=== PATIENT | male | born 2000 | race Caucasian/White ===

== ENCOUNTER → 2018-11-24 | Outpatient (CLI) | payer BC ==
[~2018-11-24] MED LIST: AMPH30TA10 PO; BUPR-126 PO; METH27ERPT PO
[2018-11-24 17:08] LABS: PLATELET COUNT, AUTOMATED 363 K/uL (150-450)
== END ==
LOC: LAB 16:57
PROVIDERS: ATTEND Internal Medicine
DX: F90.9 Attention-deficit hyperactivity disorder, unspecified type (principal); F41.9 Anxiety disorder, unspecified; K52.9 Noninfective gastroenteritis and colitis, unspecified; G47.34 Idiopathic sleep related nonobstructive alveolar hypoventilation; R53.83 Other fatigue
CPT/HCPCS: 36415; 82040; 82247; 82310; 82374; 82435; 82565; 82607; 82728; 82746; 82947; 83540; 83550; 84075; 84132; 84155; 84295; 84443; 84450; 84460; 84520; 85025; 85651; 86140

== ENCOUNTER → 2018-12-23 | Day surgery (SDC) | payer BC ==
[~2018-12-23] VITALS: Ht 180.3 cm; Wt 107.5 kg
[~2018-12-23] MED LIST changes: +ADDE30XRPT PO; +BUPR-124 PO; +GLYCOPYRROLATE 0.2MG/ML 1 ML INJ IVP ONE; +HYOS-50 SL; +LIDOCAINE MPF 1% 5 ML VIAL ONE; +LIDOCAINE/SOD BICARB 8.4% SYR ID ONE; +NORMOSOL R SOLN(*) 1000 ML BAG 1,000 ML IV PRN; +PANT40TA65 PO; +PROPOFOL EMUL(*) 10MG/ML 20 ML 60 ML ONE
[2018-12-23 08:50] VITALS: BP 125/74
[2018-12-23 10:23] VITALS: BP 94/88
--- NOTE | 2018-12-23 10:32 | NUR ---
1023 PT ARRIVED TO [place] VIA CART, SAFETY MAINTAINED, SBAR FROM SR. MALDONADO AND Kong MOORE RN. VSS, PT RESTING IN L LAT POSITION, MANDIBULAR SUPPORT PROVIDED TO PREVENT OBSTRUCTION, PARTNER SAMIRA AT BEDSIDE, PREVENTED PT FROM RUBBING EYES TOO ROUGHLY SEVERAL TIMES.
--- NOTE | 2018-12-23 10:36 | Short(Outpt) Discharge Summary ---
Discharge Summary Reason for Hosp/Final Diag: (1) Blood per rectum Hospital Course & Plan: pt presented for egd and colonoscopy. he tolerated the procedures well and will be discharged home when criteria met. Departure Discharge to: Home Discharge Instructions Home Meds Active Scripts Amphet Asp/Amphet/D-Amphet (ADDERALL XR 30 MG CAPSULE) 30 Mg Cap.er.24h, 30 MG PO QAM, #30 TAB-CAP Prov:ALISHA RAMIRES MD 12/02/18 Hyoscyamine Sulfate (LEVSIN-SL) 0.125 Mg Tab.subl, 0.125 MG SL QID PRN for abd. pain, #30 TAB 1 Refill Prov:ALISHA RAMIRES MD 11/30/18 Pantoprazole Sodium (PANTOPRAZOLE SODIUM) 40 Mg Tablet.dr, 40 MG PO QDAY, #30 TAB.SR 3 Refills Prov:ALISHA RAMIRES MD 11/30/18 Reported Medications Bupropion Hcl (BUPROPION XL) 150 Mg Tab.er.24h, 2 TAB PO QDAY, #10 TAB 11/29/18 Diet: Regular Activity: As Tolerated Special Instructions: we will call you in 10 days with biopsy results. CHESTER LAWTON Dec 23, 2018 10:36
--- NOTE | 2018-12-23 10:40 | NUR ---
1038 DR. LAWTON AT BEDSIDE TO DESCRIBE FINDINGS
[2018-12-23 10:45] VITALS: BP 124/70
--- NOTE | 2018-12-23 10:47 | NUR ---
1045, DOWN TO ROOM AIR, TOLERATING SIPS OF OJ, VSS
[2018-12-23 11:02] VITALS: BP 114/76
[2018-12-23 11:03] VITALS: BP 109/73
--- NOTE | 2018-12-23 11:21 | NUR ---
1100 ORTHOSTATICS DONE, STABLE, PT DENIES DIZZINESS, IV TUBING D/C'D, ALLOWED TO DRESS 1105 D/C INSTRUCTIONS COVERED, ALL QUESTIONS ANSWERED, IV OUT, PRESSURE DRESSING APPLIED 1107 OUT TO CAR ON FOOT ALONG WITH DANNY HOGAN AND Lisa DUFFY RN, STEADY ON FEET, ALL BELONGINGS WITH PT
== END ==
LOC: OR 01:07
PROVIDERS: ATTEND Surgery
DX: K62.9 Disease of anus and rectum, unspecified (principal); K21.0 Gastro-esophageal reflux disease with esophagitis
CPT/HCPCS: 00811; 43239; 45380; 87077; 88305; 88313; 88342; J2001; J2704; J3490

== ENCOUNTER → 2019-01-19 | Outpatient (CLI) | payer BC ==
[~2019-01-19] MED LIST changes: +BUPR300T56 PO; -GLYCOPYRROLATE 0.2MG/ML 1 ML INJ IVP ONE; +HYDR25SU51 RC; -LIDOCAINE MPF 1% 5 ML VIAL ONE; -LIDOCAINE/SOD BICARB 8.4% SYR ID ONE; -NORMOSOL R SOLN(*) 1000 ML BAG 1,000 ML IV PRN; -PROPOFOL EMUL(*) 10MG/ML 20 ML 60 ML ONE
== END ==
LOC: RESP 20:51
PROVIDERS: ATTEND Internal Medicine
DX: G47.33 Obstructive sleep apnea (adult) (pediatric) (principal); G47.37 Central sleep apnea in conditions classified elsewhere